=== PATIENT | male | born 2000 | race African-American/Black ===

== ENCOUNTER → 2018-06-26 | Outpatient (CLI) | payer MEDICAID ==
--- NOTE | 2018-06-26 14:34 | WOMENS IMAGING REPORT ---
EXAM DESCRIPTION: U/S BREAST UNILATERAL, COMPL COMPLETED DATE/TIME: 06/26/2018 1:22 pm REASON FOR STUDY: RT BREAST;N63.10 N63.10 UNSPECIFIED LUMP IN THE RIGHT BREAST, UNSPECIFIED EDIN N62 HYPERTROPHY OF BREAST COMPARISON: None. TECHNIQUE: Real-time and static grayscale imaging performed of the right and left male breast target ed to the area of clinical concern. Selected color Doppler images recorded. LIMITATIONS: None. FINDINGS: MASS: No mass identified. Normal glandular tissue. OTHER: There is right-sided gynecomastia. No worrisome features, no focal mass. No cysts. No worri some acoustic absorption. Left retroareolar male breast was imaged for comparison. No left gynecoma stia IMPRESSION: Right male breast gynecomastia BIRAD: 2 Benign findings. RECOMMENDATION: RECOMMENDED FOLLOW-UP: Follow-up as clinically indicated. COMMENT: The [employer] ([employer]) has developed recommendations for screening MRI of the breasts in certain patient populations, to be used in conjunction with mammography. Breast MRI s urveillance may be appropriate for women with more than 20% lifetime risk of developing breast cancer as determined by genetic testing, significant family history of the disease, or history of mantle r adiation for Hodgkins Disease. [employer] Practice Guidelines 2008. TECHNICAL DOCUMENTATION: JOB ID: [id number] [employer]- All Rights Reserved Reading location - IP/workstation name: [email or web address]
== END ==
LOC: WI 12:29
PROVIDERS: ATTEND Pediatrics
DX: N62 Hypertrophy of breast (principal)
CPT/HCPCS: 76641